=== PATIENT | male | born 1975 | race Caucasian/White ===

== ENCOUNTER 2021-03-01 18:36 | Emergency (ER) | payer OTHER ==
[2021-03-01 20:07] LABS: BUN/CREATININE RATIO 17 (0-10)
[2021-03-01 22:03] LABS: HEMOGLOBIN 13.4 gm/dl (14.0-17.5); RED BLOOD COUNT 4.7 M/UL (4.20-5.50); WHITE BLOOD COUNT 9.2 K/UL (4.5-11.0)
== END 2021-03-02 00:30 | disposition home or self-care (01) ==
LOC: ER1 18:36
PROVIDERS: Student in an Organized Health Care Education/Training Program
DX: T40.601A Poisoning by unspecified narcotics, accidental (unintentional), initial encounter (principal)
CPT/HCPCS: 80053; 80307; 82550; 82553; 83874; 84484; 85025; 93005; 99284; G0480